=== PATIENT | female | born 1990 | race Caucasian/White ===

== ENCOUNTER 2017-05-08 01:30 | Emergency (ER) | payer BC ==
[2017-05-08] MEDS ORDERED: Ondansetron HCl/PF 4 MG/2 ML Vial ONE (01:34)
[2017-05-08 02:16] LABS: #Basophils 0.1 thou/uL (0.0-0.2); #Eosinphils 0.1 thou/uL (0.0-0.7); #Monocytes 0.4 thou/uL (0.11-0.59); #Neutrophils 2.6 thou/uL (1.40-6.50); %Basophils 1.1 % (0.0-1.0); %Eosinophils 1.1 % (0.0-10.0); %Lymphocytes 49.2 % (21.0-51.0); %Monocytes 6.5 % (0.0-10.0); Hematocrit 37.9 % (36.0-47.0); Mean Platelet Volume 6.5 fL (7.4-10.4); Red Blood Cell (RBC) Count 3.97 mill/uL (4.20-5.40); White Blood Cell (WBC) Count 6.1 thou/uL (4.8-10.8)
[2017-05-08 02:40] LABS: ALT (SGPT) 20 U/L (8-55); AST (SGOT) 16 U/L (5-34); Alkaline Phosphatase 60 U/L (40-150); Anion Gap 7 mmol/L (10-20); BUN (Urea Nitrogen) 12 mg/dL (7.0-18.7); Bilirubin, Total 0.2 mg/dL (0.2-1.2); Calc. Creatinine Clearance 0 mL/min (70-130); Calcium 9.7 mg/dL (7.8-10.44); Carbon Dioxide 27 mmol/L (22-29); Chloride 112 mmol/L (98-107); Estimated GFR-MDRD 89; Globulin 2.7 g/dL (2.4-3.5); Protein, Total 6.5 g/dL (6.0-8.3)
[2017-05-08 04:10] LABS: Bilirubin Negative (Negative); Blood, Urine Negative (Negative); Glucose, Urine (Dipstick) Negative (Negative); Ketone, Urine Negative (Negative); Nitrite Negative (Negative); Protein, Urine (Dipstick) Negative (Neg-Trace); Urobilinogen 0.2 mg/dL (0.2-1.0)
[2017-05-08 04:27] LABS: Amphetamine Not Detected (NotDetected); Methadone Not Detected (NotDetected); Methamphetamine Not Detected (NotDetected)
--- NOTE | 2017-05-10 14:38 | EKG ---
Test Reason : Blood Pressure : / mmHG Vent. Rate : 093 BPM Atrial Rate : 093 BPM P-R Int : 152 ms QRS Dur : 090 ms QT Int : 370 ms P-R-T Axes : 044 019 022 degrees QTc Int : 460 ms Normal sinus rhythm Confirmed by JUANCARLOS BROWN, ROOPA ([id number]), map editor OSMAN BOWMAN ([id number]) on 05/10/2017 2:37:45 PM Referred By: Confirmed By:ROOPA BAUER MD
== END 2017-05-08 04:59 | disposition home or self-care (01) ==
LOC: ERS 01:30
DX: F10.129 Alcohol abuse with intoxication, unspecified (principal); F32.9 Major depressive disorder, single episode, unspecified; Z79.899 Other long term (current) drug therapy; Y90.8 Blood alcohol level of 240 mg/100 ml or more
CPT/HCPCS: 36415; 80053; 80306; 80307; 81003; 84703; 85025; 93005; 96361; 96374; J2405

== ENCOUNTER 2020-09-14 23:30 | Emergency (ER) | payer BC, OTHER ==
[2020-09-14] MEDS ORDERED: Lidocaine 1% w/Epinephrine 1:100K 20 ML VIAL ONE ×2 (23:46→23:47)
--- NOTE | 2020-09-14 23:58 | CT ---
CT head noncontrast HISTORY: Fall. Head injury. FINDINGS: There is no evidence of acute intracranial hemorrhage or infarct. The ventricles appear nor mal in size, shape and position. There is no mass effect or shift of midline structures. Large left parietal scalp injury and deep hematoma with small pocket of gas. No skull fracture or rad iopaque foreign bodies. IMPRESSION : No acute intracranial abnormalities are demonstrated.
[2020-09-15] MEDS ORDERED: Triple Antibiotic Oint 1 GM Packet ONE (00:51)
== END 2020-09-15 01:04 | disposition home or self-care (01) ==
LOC: ERS 23:30
DX: S01.01XA Laceration without foreign body of scalp, initial encounter (principal); W17.89XA Other fall from one level to another, initial encounter
CPT/HCPCS: 12002; 70450